=== PATIENT | male | born 1950 | race Two or more races ===

== ENCOUNTER 2017-08-08 06:25 | Day surgery (SDC) | payer OTHER ==
[~2017-08-08 06:25] MED LIST: ENALAPRIL MALEA10 MG PO
== END 2017-08-08 12:40 | disposition home or self-care (01) ==
LOC: AMB-ENDOS 06:25
DX: K92.1 Melena (principal); R59.0 Localized enlarged lymph nodes; Z85.038 Personal history of other malignant neoplasm of large intestine

== ENCOUNTER 2020-12-29 06:00 | Day surgery (SDC) | payer OTHER | END 2020-12-29 09:45 | disposition home or self-care (01) | LOC: AMB-ENDOS 06:00 | PROVIDERS: ATTEND Colon & Rectal Surgery | DX: K62.89 Other specified diseases of anus and rectum (principal); K62.4 Stenosis of anus and rectum; Z20.822 Contact with and (suspected) exposure to COVID-19 ==